=== PATIENT | male | born 1995 | race Hispanic/Latino ===

== ENCOUNTER 2018-10-04 03:38 | Emergency (ER) | payer SELFPAY ==
--- NOTE | 2018-10-04 09:12 | CT ---
CT BRAIN WITHOUT CONTRAST: Date: 10/04/18 INDICATION: 22-year-old male for medical clearance. Patient reportedly fell to the ground after getting from his car tonight with abrasions to the face. COMPARISON: None. FINDINGS: The extracranial soft tissues appear within normal limits. There is possibly some mild soft tissue sw elling involving the left supraorbital soft tissues. Visualized orbits are intact. The skull is intac t. The paranasal sinuses and visualized mastoid air cells are clear. There is prominence of the extra-axial space overlying the frontal and parietal regions bilaterally, much more prominent than expected for age. No hydrocephalus is evident. No midline shift is noted. IMPRESSION: 1. No definite acute intracranial infarct, hemorrhage, or hydrocephalus is present. 2. Accentuation of the extra-axial space overlying the frontoparietal convexities bilaterally may be developmental in nature or related to early cerebral atrophy. 3. Mild soft tissue swelling overlying the left supraorbital frontal scalp. POS: BH
== END 2018-10-04 05:09 ==
LOC: ERS 03:38
DX: S02.5XXA Fracture of tooth (traumatic), initial encounter for closed fracture (principal); S00.81XA Abrasion of other part of head, initial encounter; W19.XXXA Unspecified fall, initial encounter
CPT/HCPCS: 70450